=== PATIENT | male | born 1960 | race Caucasian/White ===

== ENCOUNTER → 2022-04-14 09:18 | Outpatient (CLI) | payer OTHER, SELFPAY ==
--- NOTE | ~2022-04-14 | MR_ITS ---
EXAMINATION: MR knee RT wo con DATE: 04/14/2022 09:51 INDICATION: Right knee pain TECHNIQUE: Magnetic resonance imaging (MRI) of the right knee was performed without intravenous contr ast. Sequences included coronal PD-weighted FSE, coronal PD-weighted FS FSE, sagittal T2-weighted FS E, sagittal PD-weighted FS FSE and axial PD weighted fat saturated FSE. COMPARISON: None. FINDINGS: Medial compartment: Longitudinal horizontal tear extending to the cephalad articular surface of the posterior body and po sterior horn of the medial meniscus. Articular cartilage is normal. Lateral compartment: Lateral meniscus is normal. Articular cartilage is normal. Patellofemoral compartment: Deep chondral ulceration at the medial patellar facet with tiny subarticular cystlike change inferior ly. Small focus of partial-thickness chondral fissuring with suggestion of a tiny central subchondral osteophyte at the central aspect of the medial trochlea. Ligaments and tendons: Anterior and posterior cruciate ligaments are normal. The medial collateral ligament and fibular briana ateral ligament complex are normal. The extensor mechanism is normal. The visualized medial and later al hamstring tendons as well as the iliotibial band are normal. Fluid: Small right knee joint effusion. No loose osteochondral bodies identified. Small Young's cyst. Osseous/other: A few tiny low signal intensity bone islands at the lateral femoral condyle. Marrow signal is otherwi se normal. No fracture or pathologic marrow replacing process. IMPRESSION: 1. Longitudinal horizontal tear of the posterior body and posterior horn of the medial meniscus. 2. 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 3. Small right knee joint effusion and small Young's cyst. Reviewed, dictated and finalized at location A. IMPRESSION: 1. Longitudinal horizontal tear of the posterior body and posterior horn of the medial meniscus. 2. Mild osteoarthritis with high-grade chondromalacia the medial aspect patello femoral compartment. 3. Small right knee joint effusion and small Young's cyst.
== END ==
PROVIDERS: PCP Family Medicine; Visit Provider Orthopaedic Surgery
DX: M25.561 Pain in right knee (principal); S83.241A Other tear of medial meniscus, current injury, right knee, initial encounter; M17.11 Unilateral primary osteoarthritis, right knee; M94.261 Chondromalacia, right knee; M25.461 Effusion, right knee; M71.21 Synovial cyst of popliteal space [Baker], right knee
CPT/HCPCS: 73721